=== PATIENT | male | born 1965 | race Caucasian/White ===

== ENCOUNTER 2020-12-26 13:20 | Emergency (ER) | payer BC ==
[~2020-12-26] VITALS: Ht 182.9 cm; Wt 113.6 kg
[2020-12-26 13:25] VITALS: BP 121/48
--- NOTE | 2020-12-26 13:26 | PHYS DOC ---
Adult General HPI HPI Patient is a 55-year-old male presents emergency department complaining of generalized abdominal discomfort and watery diarrhea x2 since 9 AM this morning. Patient states he and his prepared pork steak last night, states his became ill with nausea and vomiting last night, patient states he then started having similar symptoms at 9 AM today. Patient believes that he ate bad food. Patient reports a 6/10 pain on a 1-10 pain scale of his abdomen. Patient states he feels slightly nauseated with feelings of indigestion. Patient states his mouth feels a little dry. Patient denies any allergies to medications, states he takes no [id number] or prescription medications. Patient denies any surgical history. Patient states his primary care provider is Noa Evans. Patient denies history of cigarette smoking, illicit drug use, or alcohol consumption. Patient denies recent fever chills, cough, nasal or chest congestion, shortness of breath or chest pains. Patient denies any other physical complaints or physical concerns. Review of Systems Review of Systems Constitutional: Denies fever or chills [] Eyes: Denies change in visual acuity, redness, or eye pain [] HENT: Denies nasal congestion or sore throat [] Respiratory: Denies cough or shortness of breath [] Cardiovascular: No additional information not addressed in HPI [] GI: Denies abdominal pain, nausea, vomiting, bloody stools or diarrhea [] : Denies dysuria or hematuria [] Musculoskeletal: Denies back pain or joint pain [] Integument: Denies rash or skin lesions [] Neurologic: Denies headache, focal weakness or sensory changes [] Endocrine: Denies polyuria or polydipsia [] All other systems were reviewed and found to be within normal limits, except as documented in this note. Physical Exam Physical Exam Constitutional: Well developed, well nourished, no acute distress, non-toxic appearance. 55-year-old male in no apparent distress. HENT: Normocephalic, atraumatic, bilateral external ears normal, no oral exudates, nose normal. Tongue oropharynx and oral mucosa dry. No lesions or infectious process appreciated. Eyes: PERRLA, EOMI, conjunctiva normal, no discharge. Cardiovascular:Heart rate regular rhythm, no murmur heart sounds S1-S2. Lungs & Thorax: Bilateral breath sounds clear to auscultation no adventitious lung sounds appreciated. Abdomen: Bowel sounds normal, soft, no masses, no pulsatile masses. Generalized pain to palpation all 4 quadrants negative McBurney's point tenderness, negative psoas sign, negative Yates sign. No bruising or ecchymotic area appre ciated of the abdomen. Skin: Warm, dry, no erythema, no rash. Normal skin turgor. Extremities: No tenderness, no cyanosis, no clubbing, ROM intact, no edema. Distal cap refill less than 2 seconds. Neurologic: Alert and oriented X 3, normal motor function, normal sensory function, no focal deficits noted. Psychologic: Affect normal, judgement normal, mood normal. EKG EKG [] Radiology/Procedures Radiology/Procedures [] Heart Score C/O Chest Pain: No Risk Factors: Risk Factors: DM, Current or recent (<one month) smoker, HTN, HLP, family history of CAD, obesity. Risk Scores: Risk Factors: DM, Current or recent (<one month) smoker, HTN, HLP, family history of CAD, obesity. Course & Med Decision Making Course & Med Decision Making Pertinent Labs and Imaging studies reviewed. (See chart for details) 55-year-old male, vital signs reviewed, presents emergency department with gene ralized abdominal discomfort with diarrhea and nausea after eating "bad pork steak "last night. Physical examination consistent with gastroenteritis from possible food poisoning. Will start saline lock, IV normal saline 1 L, 4 mg IV Zofran, 30 mg IV Toradol, CBC, BMP, GI cocktail. Will reevaluate after period of time. Upon reevaluation of the patient, the patient is now pain-free, the patient states he feels much better, patient is oral mucosa now pink and moist. Patient denies any discomfort to his abdomen. Patient denies any nausea at this time. Patient did not take his GI cocktail, patient stated to nurse he did not feel as if he needed it. Patient's white blood cell count 15,000, consistent with acute gastroenteritis most likely viral source. The patient does not appear toxic. Low likelihood of bacterial or amoeba type GI infection. Will recommend treatment with increased fluids. Follow-up with primary care tomorrow if symptoms are ongoing. Will give strict return to ER precautions. Patient gave verbal understanding of discharge home instructions, follow-up with primary care tomorrow, return to ER precautions or concerns, patient was offered antinausea and antidiarrheal medication but refused/denies need. Patient states he feels much better and is ready to go home. Patient was discharged home without incident. Diagnosis: Gastroenteritis most likely due to food toxin versus viral component. Patient was still in ER a few hours later related to his being admitted for same symptoms to the hospital for observation, patient states that his nausea was starting to come back, I reiterated offer for antinausea medication, patient states that he would like to have a nausea medication prescribed to him, ondansetron ODT prescribed and sent to [facility]. [place] Disclaimer Dragon Disclaimer This electronic medical record was generated, in whole or in part, using a voice recognition dictation system. Departure Departure: Impression: Primary Impression: Gastroenteritis due to food toxin Disposition: 01 HOME / SELF CARE / HOMELESS Condition: GOOD Referrals: NOA EVANS (PCP) Patient Instructions: Gastritis, Adult, Viral Gastroenteritis Additional Instructions: Your evaluated today in the emergency department for diarrhea and abdominal pain. Your lab results were consistent with gastritis and/or gastroenteritis most likely from something you consumed. Your symptoms resolved with IV fluids and IV pain medications along with an IV antinausea medication. As we discussed, please increase your fluid intake over the next several days to help replace fluid loss from your diarrhea episodes. Please call your primary care physician Dr. Evans for an appointment for ongoing symptoms. Please return to the emergency department for worsening symptoms or other concerns. EMERGENCY DEPARTMENT GENERAL DISCHARGE INSTRUCTIONS Thank you for coming to [facility] (ED) today and trusting us with you care. We trust that you had a positivie experience in our Emergency Department. If you wish to speak to the department management, you may call the director at [phone]. YOUR FOLLOW UP INSTRUCTIONS ARE FOLLOWS: 1. Do you have a private Doctor? If you do not have a private doctor, please ask for a resource list of physicians or clinics that may be able to assist you with follow up care. 2. The Emergency Physician has interpreted your x-rays. The X-Ray specialist will also review them. If there is a change in the findings, you will be notified in 48 hours when at all possible. 3. A lab test or culture has been done, your results will be reviewed and you will be notified if you need a change in treatment. ADDITIONAL INSTRUCTIONS AND INFORMATION: 1. Your care today has been supervised by a physician who is specially trained in emergency care. Many problems require more than one evaluation for a complete diagnosis and treatment. We recommend that you schedule your follow up appointment as recommended to ensure complete treatment of you illness or injury. If you are unable to obtain follow up care and continue to have a problem, or if your condition worsens, we recommend that you return to the ED. 2. We are not able to safely determine your condition over the phone nor are we able to give sound medical advice over the phone. For these safety reasons, if you call for medical advice we will ask you to come to the ED for further evaluation. 3. If you have any questions regarding these discharge instructions please call the ED at [phone]. SAFETY INFORMATION: In the interest of safety, wellness, and injury prevention; we encourage you to wear your sealbelt, if you smoke; quite smoking, and we encourage family to use a protec tive helmet for bicycling and other sporting events that present an increased risk for head injury. IF YOUR SYMPTOMS WORSEN OR NEW SYMPTOMS DEVELOP, OR YOU HAVE CONCERNS ABOUT YOUR CONDITION; OR IF YOUR CONDITION WORSENS WHILE YOU ARE WAITING FOR YOUR FOLLOW UP APPOINTMENT; EITHER CONTACT YOUR PRIMARY CARE DOCTOR, THE PHYSICIAN WHOSE NAME AND NUMBER YOU WERE GIVEN, OR RETURN TO THE ED IMMEDIATELY. Scripts Ondansetron (ONDANSETRON ODT) 4 Mg Tab.rapdis 1 TAB PO PRN Q6-8HRS for NAUSEA, #16 TAB 0 Refills Prov: MARLEY MOSLEY APRN 12/26/20 MARLEY MOSLEY APRN Dec 26, 2020 13:26
[2020-12-26] MEDS ORDERED: ONDANSETRON PF 4 MG/2 ML VIAL. IVP ONE (13:45)
[2020-12-26] MEDS ORDERED: LIDO:MAALOX 1:1 20 ML SINGLE DOSE. PO ONE (13:45)
[2020-12-26] MEDS ORDERED: IV NORMAL SALINE 1,000ML 1,000 ML IV ONE (13:45)
[2020-12-26] MEDS ORDERED: KETOROLAC 30 MG/ML VIAL. IVP ONE (13:45)
[2020-12-26] MEDS ORDERED: IV RINGERS SOLUTION,LACTATED 1,000 ML IV ONE (14:00)
[2020-12-26 14:10] LABS: CALCIUM 9.1 mg/dL (8.5-10.1); CREATININE 1.2 mg/dL (0.7-1.3); GFR 62.6; POTASSIUM 4.2 mmol/L (3.5-5.1)
[2020-12-26 14:12] LABS: BASO % 0 % (0-3); EOS # 0.1 x10^3/uL (0.0-0.7); EOS % 1 % (0-3); HEMATOCRIT 49.2 % (39.0-53.0); HEMOGLOBIN 16.7 g/dL (13.0-17.5); LYMPH # 0.5 x10^3/uL (1.0-4.8); LYMPH % 3 % (24-48); MEAN CORPUSCULAR HEMOGLOBIN 32 pg (25-35); MEAN CORPUSCULAR HGB CONC 34 g/dL (31-37); MEAN CORPUSCULAR VOLUME 94 fL (79-100); MONO # 0.8 x10^3/uL (0.0-1.1); MONO % 5 % (0-9); NEUT # 13.7 x10^3uL (1.8-7.7); NEUT % 90 % (31-73); PLATELET COUNT 237 x10^3/uL (140-400); RED BLOOD COUNT 5.24 x10^6/uL (4.30-5.70); RED CELL DISTRIBUTION WIDTH 12.9 % (11.5-14.5); WHITE BLOOD COUNT 15.2 x10^3/uL (4.0-11.0)
[2020-12-26 15:15] LABS: % BANDS 3 % (0-9); % EOS 2 % (0-5); % LYMPHS 3 % (24-48); % MONOS 5 % (0-10); % SEGS 87 % (35-66)
[2020-12-26 15:16] LABS: PLT ESTIMATE ADEQUATE (ADEQUATE)
[2020-12-26] MEDS ORDERED: ONDA4TAB12 PO (19:46)
== END 2020-12-26 16:31 | disposition home or self-care (01) ==
LOC: ER 13:20
DX: A05.9 Bacterial foodborne intoxication, unspecified (principal)
CPT/HCPCS: 36415; 80048; 83690; 85007; 85025; 96361; 96374; 96375; 99284; J1885; J2405; J7030; J7120